=== PATIENT | female | born 1995 | race American Indian/Alaskan Native ===

== ENCOUNTER 2016-10-23 17:32 | Emergency (ER) | payer SELFPAY | END 2016-10-23 18:16 | disposition left against medical advice (07) | LOC: ED 17:32 | DX: Z00.8 Encounter for other general examination (principal); Z53.21 Procedure and treatment not carried out due to patient leaving prior to being seen by health care provider ==

== ENCOUNTER 2018-04-05 15:41 | Emergency (ER) | payer SELFPAY ==
[2018-04-05 16:04] VITALS: BP 94/61
== END 2018-04-05 16:05 | disposition left against medical advice (07) ==
LOC: ED 15:41
DX: R50.9 Fever, unspecified (principal); Z53.21 Procedure and treatment not carried out due to patient leaving prior to being seen by health care provider